=== PATIENT | male | born 1945 | race African-American/Black ===

== ENCOUNTER 2020-09-05 20:02 | Inpatient (IN) | payer MEDICARE, MEDICAID ==
[~2020-09-05] VITALS: Ht 182.9 cm; Wt 57.6 kg
[2020-09-05 21:32] LABS: HEMATOCRIT. 36.6 % (42.0-52.0); HEMOGLOBIN. 12.3 g/dL (14.0-18.0); MEAN CORPUSCULAR HEMOGLOBIN 31.5 pg (28.0-32.0); MEAN CORPUSCULAR VOLUME 93.5 fL (80.0-94.0); MEAN PLATELET VOLUME 8.7 fl (7.4-10.4); PLATELET 209 x1000/uL (130-400); RED BLOOD CELL COUNT 3.92 mill/uL (4.7-6.1); RED CELL DISTRIBUTION WIDTH 15.9 % (11.6-14.6)
[2020-09-05 21:38] LABS: CLARITY URINE CLEAR (CLEAR); COLOR URINE YELLOW (YELLOW); KETONES URINE NEGATIVE (NEGATIVE); LEUKOCYTE ESTERASE URINE NEGATIVE (NEGATIVE); NITRITE URINE NEGATIVE (NEGATIVE); OCCULT BLOOD URINE NEGATIVE (NEGATIVE); PH URINE 7.5 (4.5-8.0); PROTEIN URINE NEGATIVE (NEGATIVE); SPECIFIC GRAVITY URINE 1.019 (1.005-1.030); UROBILINOGEN URINE 0.2 E.U./dL (0.2-1.0)
[2020-09-05 21:40] LABS: CHLORIDE 107 mEq/L (98-107)
[2020-09-05 21:45] LABS: INR 0.9; PROTHROMBIN TIME 9.9 sec (9.6-11.0)
[2020-09-05 22:01] LABS: PLATELET ESTIMATE NORMAL
[2020-09-06] MEDS ORDERED: ACETAMINOPHEN 325MG TABLET PO ONE (03:00)
[2020-09-06] MEDS ORDERED: CEFTRIAXONE 1 G PREMIX 50 ML IV ONE (04:45)
[2020-09-06] MEDS ORDERED: LORAZEPAM 2MG/ML CPJ IV ONE (13:00)
[2020-09-06] MEDS ORDERED: LEVETIRACETAM 500MG PREMIX 100 ML IV ONE (13:00)
[2020-09-06] MEDS ORDERED: ONDANSETRON HCL 4MG/2ML INJ IV PRN (14:00)
[2020-09-06] MEDS ORDERED: LORAZEPAM 2MG/ML CPJ IV PRN (14:00)
[2020-09-06] MEDS ORDERED: ACETAMINOPHEN 325MG TABLET PO PRN (14:00)
[2020-09-06] MEDS ORDERED: PHENYTOIN SODIUM EXTENDED 100MG CAPSULE PO NR (14:45)
[2020-09-06] MEDS ORDERED: CEFEPIME 1,000 MG in DEXTROSE 5% WATER 50 ML IV SCH (15:00)
[2020-09-06] MEDS: METRONIDAZOLE 500 MG PREMIX 100 ML IV SCH (15:05)
[2020-09-06] MEDS: LEVETIRACETAM 500MG TABLET PO SCH (21:00)
[2020-09-06 23:50] VITALS: BP 139/73
[2020-09-07] MEDS: METRONIDAZOLE 500 MG PREMIX 100 ML IV SCH ×3 (02:32→19:19)
[2020-09-07] MEDS ORDERED: LOSA50TA41 PO (03:47)
[2020-09-07] MEDS ORDERED: HYDR-4134 PO (03:47)
[2020-09-07] MEDS ORDERED: CLON0.1T PO (03:47)
[2020-09-07] MEDS ORDERED: LOV40 SQ (03:47)
[2020-09-07] MEDS ORDERED: ASPI-1158 PO (03:47)
[2020-09-07] MEDS ORDERED: LEVE1000 PO (03:47)
[2020-09-07] MEDS ORDERED: PANT40TA4 PO (03:47)
[2020-09-07 04:00] VITALS: BP 115/67
[2020-09-07] MEDS ORDERED: INFLUENZA VACCINE 05/PF 0.5 ML VIAL IM ONE (06:00)
[2020-09-07] MEDS: CEFEPIME 1,000 MG in DEXTROSE 5% WATER 50 ML IV SCH ×2 (06:10→18:24)
[2020-09-07 06:41] LABS: HEMATOCRIT. 36.3 % (42.0-52.0); MEAN CORPUSCULAR HEMOGLOBIN 31.6 pg (28.0-32.0); MEAN CORPUSCULAR VOLUME 95.2 fL (80.0-94.0); MEAN PLATELET VOLUME 8.4 fl (7.4-10.4); PLATELET 208 x1000/uL (130-400); RED BLOOD CELL COUNT 3.82 mill/uL (4.7-6.1); RED CELL DISTRIBUTION WIDTH 15.8 % (11.6-14.6)
[2020-09-07 06:48] LABS: CHLORIDE 108 mEq/L (98-107)
[2020-09-07 08:00] VITALS: BP 122/71
[2020-09-07] MEDS: LEVETIRACETAM 500MG TABLET PO SCH ×2 (10:32→21:46)
[2020-09-07 12:00] VITALS: BP 139/72
[2020-09-07] MEDS ORDERED: PHENYTOIN SODIUM EXTENDED 100MG CAPSULE PO ONE (13:00)
[2020-09-07 13:22] LABS: PLATELET ESTIMATE NORMAL
[2020-09-07] MEDS ORDERED: PHENYTOIN SODIUM 1,000 MG in SODIUM CHLORIDE 0.9% 80 ML IV NR (15:00)
[2020-09-07 16:00] VITALS: BP 150/71
[2020-09-07 17:33] LABS: BG BASE EXCESS 0.6 mmol/L (-2.0-2.0); BG CARBOXYHEMOGLOBIN 0.1 % (0.5-1.5); BG DEOXYHEMOGLOBIN 8.9 % (0.0-5.0); BG FRACTION INSPIRED OXYGEN 21; BG HCO3 ACT 27.1 mmol/L (22.0-26.0); BG METHEMOGLOBIN 0.5 % (0.0-1.5); BG OXYHEMOGLOBIN 90.5 % (94.0-97.0); BG PCO2 51.3 mmHg (35.0-45.0); BG PO2 59.7 mmHg (75.0-100.0); BG SAMPLE SITE RIGHT BRACHIAL; BG TOTAL HEMOGLOBIN 12.4 g/dL (12.0-18.0); BG VENT MODE ROOM AIR
[2020-09-07 20:00] VITALS: BP 136/80
[2020-09-08] VITALS: BP 141/79
[2020-09-08] MEDS: METRONIDAZOLE 500 MG PREMIX 100 ML IV SCH ×3 (01:20→17:39)
[2020-09-08 04:00] VITALS: BP 147/79
[2020-09-08] MEDS: CEFEPIME 1,000 MG in DEXTROSE 5% WATER 50 ML IV SCH ×2 (06:10→18:44)
[2020-09-08 08:00] VITALS: BP 150/86
[2020-09-08] MEDS: LEVETIRACETAM 500MG TABLET PO SCH ×2 (08:21→21:29)
[2020-09-08 12:00] VITALS: BP 150/93
[2020-09-08 12:18] LABS: BG BASE EXCESS 0.3 mmol/L (-2.0-2.0); BG CARBOXYHEMOGLOBIN 0.3 % (0.5-1.5); BG DEOXYHEMOGLOBIN 5.6 % (0.0-5.0); BG FRACTION INSPIRED OXYGEN 21; BG HCO3 ACT 26.4 mmol/L (22.0-26.0); BG METHEMOGLOBIN 0.2 % (0.0-1.5); BG OXYGEN SATURATION 94.4 % (92.0-98.5); BG OXYHEMOGLOBIN 93.9 % (94.0-97.0); BG PCO2 49.2 mmHg (35.0-45.0); BG PH 7.348 (7.350-7.450); BG SAMPLE SITE RIGHT BRACHIAL; BG TOTAL HEMOGLOBIN 12.1 g/dL (12.0-18.0); BG VENT MODE ROOM AIR
[2020-09-08] MEDS ORDERED: HYDROCODONE/ACETAMINOPHEN 5/325MG TABLET PO PRN (14:00)
[2020-09-08] MEDS ORDERED: LORAZEPAM 2MG/ML CPJ IV PRN (14:00)
[2020-09-08] MEDS ORDERED: DIPHENHYDRAMINE 50MG/ML VIAL IV PRN (14:30)
[2020-09-08] MEDS: PHENYTOIN SODIUM EXTENDED 100MG CAPSULE PO SCH ×2 (15:24→21:29)
[2020-09-08 16:00] VITALS: BP 146/65
[2020-09-08 20:00] VITALS: BP 126/64
[2020-09-08 21:54] LABS: CHLORIDE 106 mEq/L (98-107)
[2020-09-08 21:55] LABS: BASOPHILS % 0.8 % (0.0-2.0); HEMATOCRIT. 34.3 % (42.0-52.0); HEMOGLOBIN. 11.4 g/dL (14.0-18.0); LYMPHOCYTES % 27.3 % (20.0-50.0); MEAN CORPUSCULAR HEMOGLOBIN 31.1 pg (28.0-32.0); MEAN CORPUSCULAR VOLUME 93.5 fL (80.0-94.0); MEAN PLATELET VOLUME 8.2 fl (7.4-10.4); MONOCYTES % 14.1 % (2.0-8.0); NEUTROPHILS % 53.8 % (40.0-76.0); PLATELET 209 x1000/uL (130-400); RED BLOOD CELL COUNT 3.66 mill/uL (4.7-6.1); RED CELL DISTRIBUTION WIDTH 15.3 % (11.6-14.6)
[2020-09-08 22:03] LABS: CREATINE KINASE 64 IU/L (39-308)
[2020-09-08 22:05] LABS: CREATINE KINASE MB FRACTION 1.1 ng/mL (0.5-3.6)
[2020-09-09] VITALS: BP 141/72
[2020-09-09] MEDS: METRONIDAZOLE 500 MG PREMIX 100 ML IV SCH ×3 (02:17→17:04)
[2020-09-09 04:00] VITALS: BP 142/65
[2020-09-09] MEDS: PHENYTOIN SODIUM EXTENDED 100MG CAPSULE PO SCH ×3 (04:57→21:00)
[2020-09-09] MEDS: CEFEPIME 1,000 MG in DEXTROSE 5% WATER 50 ML IV SCH ×2 (04:57→18:26)
[2020-09-09 08:00] VITALS: BP 129/79
[2020-09-09] MEDS: LEVETIRACETAM 500MG TABLET PO SCH ×2 (09:31→21:00)
[2020-09-09 12:00] VITALS: BP 149/74
[2020-09-09] MEDS: ENOXAPARIN 40MG/0.4ML SYR SUBCUT SCH (12:07)
[2020-09-09 16:00] VITALS: BP 146/63
[2020-09-09 20:00] VITALS: BP 154/81
[2020-09-10] VITALS: BP 136/72
[2020-09-10] MEDS: METRONIDAZOLE 500 MG PREMIX 100 ML IV SCH ×3 (01:22→10:13)
[2020-09-10 04:00] VITALS: BP 142/82
[2020-09-10] MEDS: PHENYTOIN SODIUM EXTENDED 100MG CAPSULE PO SCH ×2 (04:53→14:51)
[2020-09-10] MEDS: CEFEPIME 1,000 MG in DEXTROSE 5% WATER 50 ML IV SCH (04:54)
[2020-09-10 08:00] VITALS: BP 167/86
[2020-09-10] MEDS: LEVETIRACETAM 500MG TABLET PO SCH (10:12)
[2020-09-10] MEDS: ENOXAPARIN 40MG/0.4ML SYR SUBCUT SCH (10:13)
[2020-09-10 12:00] VITALS: BP 160/86
[2020-09-10] MEDS ORDERED: LEVO500T2 PO (13:32)
[2020-09-10 16:09] VITALS: BP 137/80
== END 2020-09-10 17:20 | DRG 720 ==
LOC: ER 20:02 → 7WST 09-06 04:02 → EDBEDREQ 09-06 04:31 → EDBEDREQSVC 09-06 12:50 → ENRESERV 09-06 22:02 → 7WST 09-06 23:55
PROVIDERS: ADMIT Internal Medicine; ATTEND Internal Medicine
DX: A41.89 Other specified sepsis (principal); U07.1 COVID-19; G40.909 Epilepsy, unspecified, not intractable, without status epilepticus; D17.9 Benign lipomatous neoplasm, unspecified; F03.90 Unspecified dementia, unspecified severity, without behavioral disturbance, psychotic disturbance, mood disturbance, and anxiety; K21.9 Gastro-esophageal reflux disease without esophagitis; R13.10 Dysphagia, unspecified; D72.819 Decreased white blood cell count, unspecified; D64.9 Anemia, unspecified; I12.9 Hypertensive chronic kidney disease with stage 1 through stage 4 chronic kidney disease, or unspecified chronic kidney disease; N18.9 Chronic kidney disease, unspecified; J44.9 Chronic obstructive pulmonary disease, unspecified; Z86.73 Personal history of transient ischemic attack (TIA), and cerebral infarction without residual deficits; Z79.899 Other long term (current) drug therapy; N17.0 Acute kidney failure with tubular necrosis; J12.89 Other viral pneumonia
CPT/HCPCS: 36415; 36600; 71045; 76800; 80048; 80053; 80185; 81003; 82375; 82550; 82553; 82805; 83605; 84145; 84484; 85025; 86850; 86900; 87426; 87635; 90686; 93005; 99285; J0692; J0696; J1165; J1200; J1650; J1953; J2060; J3490; J7040; J7050; J7060